=== PATIENT | female | born 1975 | race Caucasian/White ===

== ENCOUNTER → 2020-05-05 | Outpatient (CLI) | payer OTHER, SELFPAY ==
[2020-05-05 17:15] VITALS: BMI 20.9
[2020-05-08 16:08] LABS: Endomysial Antibody IgA Negative (Negative)
[2020-05-08 16:45] LABS: Deamidated Gliadin IgA 5 units (0-19); Deamidated Gliadin IgG 3 units (0-19); Immunoglobulin A 94 mg/dL (87-352); t-Transglutaminase IgA <2 U/mL (0-3)
[2020-05-11 19:56] LABS: HPV Reflexed? NOT INDICATED
== END | disposition home or self-care (01) ==
PROVIDERS: Referring Provider Nurse Practitioner; Visit Provider Nurse Practitioner
DX: Z01.419 Encounter for gynecological examination (general) (routine) without abnormal findings (principal); R10.30 Lower abdominal pain, unspecified; Z12.31 Encounter for screening mammogram for malignant neoplasm of breast
CPT/HCPCS: 82784; 83516; 86255; 88175; G0145

== ENCOUNTER → 2021-09-12 | Outpatient (CLI) | payer OTHER, SELFPAY ==
--- NOTE | 2021-09-12 09:06 | BI_ITS ---
MAMMOGRAPHY - BILATERAL DIAGNOSTIC REASON FOR EXAM: Female, 45 years old. 3 week history of left breast lump. PERTINENT HISTORY: Mother with breast cancer. TECHNIQUE: Digital bilateral breast jeffrey (3D mammographic acquisition) in the CC and MLO projections. 2-D mediolateral oblique (MLO) and craniocaudad (CC) views of both breasts were obtained. CAD: Full Field Digital Mammography with Computer Added Detection was performed. COMPARISON: Comparison is made with prior abdomen examination dated 10/28/2018. FINDINGS: Breast Composition: The breasts are extremely dense, which lowers the sensitivity of mammography. The palpable abnormality corresponds to a 9 mm x 6.8 mm nodule. Correlation with ultrasound is recommended. No other significant abnormalities are identified. BI/DIAG MAMM W/CAD, BILAT IMPRESSION: The palpable abnormality corresponds to 9 mm x 6.8 mm nodular density. Correlation with ultrasound is recommended. ASSESSMENT CATEGORY: BIRADS Category 0: Incomplete. Need additional imaging evaluation. A letter regarding these results will be sent to the patient by the facility within 30 days. Approximately 10% of breast cancers are not detected by mammography. A normal mammogram should not delay biopsy of a clinically suspicious abnormality. Electronically Signed: Kyle Rashid MD at 9:52 EDT ,
--- NOTE | 2021-09-12 09:06 | US_ITS ---
STUDY: ULTRASOUND BREAST - LEFT REASON FOR EXAM: Female, 45 years old. Abnormal screening mammogram. TECHNIQUE: Axial and longitudinal images of the LEFT breast were performed with a high resolution ultrasound transducer. # OF IMAGES: 6 COMPARISON: Comparison is made with prior mammogram done earlier today. FINDINGS: LEFT Breast: The palpable abnormality corresponds to a 8 mm x 9 mm x 7 mm cyst at the 3 o''clock position of the breast at 3 cm from the nipple. US/Breast Limited Unilateral IMPRESSION: The palpable abnormality corresponds to a 9 mm x 8 mm x 7 mm cyst. ASSESSMENT CATEGORY: BIRADS Category 2: Benign. A letter regarding these results will be sent to the patient by the facility within 30 days. Electronically Signed: Kyle Rashid MD at 10:46 EDT ,
== END | disposition home or self-care (01) ==
LOC: OPBI 09:04
PROVIDERS: Visit Provider Nurse Practitioner
DX: N63.20 Unspecified lump in the left breast, unspecified quadrant (principal)
CPT/HCPCS: 76642; 77062; 77066; G0279